=== PATIENT | male | born 1980 | race African-American/Black ===

== ENCOUNTER 2024-03-17 06:07 | Emergency (ER) | payer MEDICAID ==
[~2024-03-17] VITALS: Ht 180.3 cm; Wt 81.0 kg
[~2024-03-17 06:07] MED LIST: GEODON; REMERON; ibuprofen; tramadol
[2024-03-17 06:09] VITALS: O2SAT 99
[2024-03-17 06:50] LABS: BASOPHILS % 0.8 % (0.0-2.0); DIFFERENTIAL COMMENT 0; EOSINOPHILS % 0.8 % (0.0-5.0); HEMATOCRIT. 45.1 % (42.0-52.0); HEMOGLOBIN. 13.1 g/dL (14.0-18.0); LYMPHOCYTES % 33.2 % (20.0-50.0); MEAN CORPUSCULAR HEMOGLOBIN 25.9 pg (28.0-32.0); MEAN CORPUSCULAR VOLUME 89.3 fL (80.0-94.0); MEAN PLATELET VOLUME 7.7 fl (7.4-10.4); MONOCYTES % 11.2 % (2.0-8.0); PLATELET 66 x1000/uL (130-400); RED BLOOD CELL COUNT 5.05 mill/uL (4.7-6.1); RED CELL DISTRIBUTION WIDTH 19.5 % (11.6-14.6); WHITE BLOOD COUNT 6.7 x1000/uL (4.5-11.0)
[2024-03-17 06:57] LABS: CHLORIDE 105 mEq/L (98-107); SODIUM 139 mEq/L (136-145)
[2024-03-17 06:58] LABS: CALCIUM 9.2 mg/dL (8.7-10.4); CARBON DIOXIDE 24 mEq/L (21-32)
[2024-03-17 07:03] LABS: CREATININE 1.2 mg/dL (0.6-1.3); GLUCOSE 85 mg/dL (70-105); TROPONIN I HIGH SENSITIVITY 28 ng/L (3.0-53); UREA NITROGEN BLOOD 12 mg/dL (9-23)
[2024-03-17 07:04] LABS: ALANINE AMINOTRANSFERASE 48 IU/L (10-49); ETHANOL BLOOD < 10 mg/dL (<10)
[2024-03-17 07:05] LABS: ALBUMIN 3.6 g/dL (3.2-4.8); ASPARTATE AMINOTRANSFERASE 74 IU/L (<34); BILIRUBIN DIRECT 0.7 mg/dL (<=3.0); BILIRUBIN TOTAL 1.5 mg/dL (0.1-1.0)
[2024-03-17 07:49] VITALS: BP 140/101; PULSE 104; RESP 20; TEMP 98.4
== END 2024-03-17 10:29 | disposition left against medical advice (07) ==
LOC: ER 06:07
DX: R06.02 Shortness of breath (principal); F12.10 Cannabis abuse, uncomplicated
CPT/HCPCS: 36415; 71045; 80048; 80076; 80320; 84484; 85025; 93005; 99285; G0480